=== PATIENT | female | born 1995 | race Caucasian/White ===

== ENCOUNTER 2019-04-07 16:33 | Emergency (ER) | payer OTHER, SELFPAY ==
[2019-04-07 16:40] VITALS: BP 124/74; PULSE 77; RESP 22; TEMP 37.3; O2SAT 99
[2019-04-07 18:26] VITALS: BP 118/63; PULSE 69; RESP 18; O2SAT 99
[2019-04-07 18:28] VITALS: BP 118/63; PULSE 67; RESP 17; O2SAT 99
--- NOTE | 2019-04-07 21:36 | ED.FEMALEGU ---
HPI - Female Genitourinary <HANS Turner - Last Filed: 04/07/19 22:44> General Chief complaint: Urogenital-Female Stated complaint: THINKS CYSTOCELE MAY HAVE RUPTURED Time Seen by Provider: 04/07/19 17:38 Source: patient Mode of arrival: ambulatory Limitations: no limitations History of Present Illness HPI Narrative: This is a 24-year-old female, nonsmoker, presents to ED with moderate amount of unusual thick yellow vaginal discharge without blood. She states is concerned for her cystocele might have ruptured. She has a history of prolapsed uterus and is being evaluated by traffic signal technician specialist in [place] for elective hysterectomy. She also has traffic signal technician provider She reports some fullness in her vaginal area. She reports has been having suprapubic cramping discomfort for last 3 days. She denies fever, chills, vomiting. She reports some nausea and states she feels nauseated when she is anxious. She has urinary frequency which is not on usual for her. She states is not concerned for STIs. . Patient reports had 2 with large size children with a quick delivery which contributes to history of uterine prolapse. Related Data Home Medications Medication Instructions Recorded Confirmed No Known Home Medications 04/07/19 04/07/19 Allergies Allergy/AdvReac Type Severity Reaction Status Date / Time nitrous oxide Allergy Verified 04/07/19 16:44 Review of Systems <HANS Turner - Last Filed: 04/07/19 22:44> Review of Systems ROS Unobtainable: All systems reviewed & are unremarkable except as noted in HPI and below PFSH <HANS Turner - Last Filed: 04/07/19 22:44> Medical History No significant past surgical history (Acute) Cystocele (Chronic) Uterine prolapse (Chronic) Social History Smoking Status: Never smoker Exam <HANS Turner - Last Filed: 04/07/19 22:44> Narrative Exam Narrative: General appearance: well developed, well nourished, in no acute distress. Head: normocephalic, atraumatic, no scalp lesions, non-tender. Eye: pupil equal, round. EOMI. Nose: nares patent. Oral: mucosa moist. Neck/Thyroid: neck supple, full range of motion, no visible masses. Skin: no suspicious rashes, lesions over visible areas. Warm and dry. Heart: S1 and S2 with RRR. no clubbing, no cyanosis, no edema. Lungs: Lung sounds clear bilaterally. Breathing even and unlabored. No stridor. No accessory muscles used. Chest: normal shape and expansion. Abdomen: non-obese, non-distended. Neurologic: alert and oriented. Cognitive exam, [employer]ER and PNS grossly intact on informal exam. Psych: good eye contact, normal affect. PELVIC: Normally developed external female genitalia with no external lesions or eruptions. Vagina and cervix have no lesions, inflammation, scant amouunt of clear vaginal discharge in perineum and non-tenderness. Small size uterine prolapse in approx 3cm diameter noticed with increased thoracic pressure. Initial Vital Signs Initial Vital Signs: Vital Signs Temperature 99.1 F 04/07/19 16:40 Pulse Rate 77 04/07/19 16:40 Respiratory Rate 22 04/07/19 16:40 Blood Pressure 124/74 04/07/19 16:40 Pulse Oximetry 99 04/07/19 16:40 <Charito Terry DO - Last Filed: 04/10/19 07:05> Initial Vital Signs Initial Vital Signs: Vital Signs Temperature 99.1 F 04/07/19 16:40 Pulse Rate 77 04/07/19 16:40 Respiratory Rate 22 04/07/19 16:40 Blood Pressure 124/74 04/07/19 16:40 Pulse Oximetry 99 04/07/19 16:40 Course <HANS Turner - Last Filed: 04/07/19 22:44> Vital Signs - 8 hr 04/07/19 16:40 04/07/19 18:26 04/07/19 18:28 Temperature 99.1 F Pulse Rate 77 69 67 Respiratory Rate 22 18 17 Blood Pressure 124/74 118/63 Blood Pressure [Left Arm] 118/63 Pulse Oximetry 99 99 99 <Charito Terry DO - Last Filed: 04/10/19 07:05> Vital Signs - 8 hr 04/07/19 16:40 04/07/19 18:26 04/07/19 18:28 Temperature 99.1 F Pulse Rate 77 69 67 Respiratory Rate 22 18 17 Blood Pressure 124/74 118/63 Blood Pressure [Left Arm] 118/63 Pulse Oximetry 99 99 99 MDM - Female Genitourinary <Juanito VoAmintaJean MarieHANS harp - Last Filed: 04/07/19 22:44> Differential Diagnosis Likely other (history of uterine prolapse, UTI, vaginal infection) Medical Records Attestation: I reviewed the patient's medical records. Lab Data Attestation: I reviewed the patient's lab results. Point of Care Testing Test Results Negative Urine Dip Bedside Urine Glucose Negative Bedside Urine Bilirubin - Negative Bedside Urine Ketone - Negative Urine Specific [place] 1.015 Bedside Urine Occult Blood - Negative Bedside Urine pH 6.0 Bedside Urine Protein - Negative Bedside Urine Urobilinogen - Negative Bedside Urine Nitrite - Negative Bedside Urine Leukocytes - Negative Esterase MDM Narrative Medical decision making narrative: The patient's physical exam is not consistent with acute surgical abdomen. Her urine test was negative for infection or . The urine prolapse is very small in size and does not appears to be inflamed or infected. External vaginal discharge he was clear and non odorous. The patient reported that she does not have concerns for STIs. I discussed with patient in length that she should contact her traffic signal technician provider to be seen with acute appointment after the ER visit. I discussed return precautions with patient include increasing pain, signs and symptoms for infection, urinary difficulty. Patient agrees with treatment plan and has no further questions at this time. <Charito Terry DO - Last Filed: 04/10/19 07:05> Lab Data Point of Care Testing Test Results Negative Urine Dip Bedside Urine Glucose Negative Bedside Urine Bilirubin - Negative Bedside Urine Ketone - Negative Urine Specific [place] 1.015 Bedside Urine Occult Blood - Negative Bedside Urine pH 6.0 Bedside Urine Protein - Negative Bedside Urine Urobilinogen - Negative Bedside Urine Nitrite - Negative Bedside Urine Leukocytes - Negative Esterase Discharge Plan Departure Patient Disposition: Home Clinical Impression: History of uterine prolapse Discharge Date/Time: 04/07/19 18:29 Interventions: ED Discharge Assessment Last Done: 04/07/19 18:28 Instructions: DI for Uterine Prolapse Activity Restrictions/Additional Instructions: You have been diagnosed with [history of uterine prolapse. Physical exam on perineum shows unremarkable small size urine prolapse. No vaginal cultures were obtained during today's visit. You're urine test shows no infection and test was negative]. What to do: *Take your medications as directed. *Follow up with your primary care provider/traffic signal technician specialist in [facility] in 2-3 days, call for an appointment. Let them know you were seen in the ED and that we asked you to be seen in follow up. *Return to ED if you have any new, worsening, or concerning symptoms, such as [fever/chills, increasing discomfort, increased vaginal discharge, chest pain, breathing difficulty, unable to tolerate fluids, any acute concerns]. Prescriptions: No Action No Known Home Medications RF: 0 <Charito Terry DO - Last Filed: 04/10/19 07:05> Cosign ED Attending Nereida Attestation: I was immediately available in the department for consultation. Documentation has been reviewed. I agree with assessment and plan.
--- NOTE | 2019-04-07 22:44 | ED_ITS ---
HPI - Female Genitourinary <HANS Turner - Last Filed: 04/07/19 22:44> General Chief complaint: Urogenital-Female Stated complaint: THINKS CYSTOCELE MAY HAVE RUPTURED Time Seen by Provider: 04/07/19 17:38 Source: patient Mode of arrival: ambulatory Limitations: no limitations History of Present Illness HPI Narrative: This is a 24-year-old female, nonsmoker, presents to ED with mo derate amount of unusual thick yellow vaginal discharge without blood. She states is concerned for her cystocele might have ruptured. She has a history of prolapsed uterus and is being evaluated by controller instructor specialist in [place] for elective hysterectomy. She also has controller instructor provider She reports some fullness in her vaginal area. She reports has been having suprapubic cramping discomfort for last 3 days. She denies fever, chills, vomiting. She reports some nausea and states she feels nauseated when she is anxious. She has urinary frequency which is not on usual for her. She states is not concerned for STIs. . Patient reports had 2 with large size children with a quick delivery which contributes to history of uterine prolapse. Related Data Home Medications Medication Instructions Recorded Confirmed No Known Home Medications 04/07/19 04/07/19 Allergies Allergy/AdvReac Type Severity Reaction Status Date / Time nitrous oxide Allergy Verified 04/07/19 16:44 Review of Systems <HANS Turner - Last Filed: 04/07/19 22:44> Review of Systems ROS Unobtainable: All systems reviewed & are unremarkable except as noted in HPI and below PFSH <HANS Turner - Last Filed: 04/07/19 22:44> Medical History No significant past surgical history (Acute) Cystocele (Chronic) Uterine prolapse (Chronic) Social History Smoking Status: Never smoker Exam <HANS Turner - Last Filed: 04/07/19 22:44> Narrative Exam Narrative: General appearance: well developed, well nourished, in no acute distress. Head: normocephalic, atraumatic, no scalp lesions, non-tender. Eye: pupil equal, round. EOMI. Nose: nares patent. Oral: mucosa moist. Neck/Thyroid: neck supple, full range of motion, no visible masses. Skin: no suspicious rashes, lesions over visible areas. Warm and dry. Heart: S1 and S2 with RRR. no clubbing, no cyanosis, no edema. Lungs: Lung sounds clear bilaterally. Breathing even and unlabored. No stridor. No accessory muscles used. Chest: normal shape and expansion. Abdomen: non-obese, non-distended. Neurologic: alert and oriented. Cognitive exam, TRAVEL SERVICE CONSULTANT and PNS grossly intact on informal exam. Psych: good eye contact, normal affect. PELVIC: Normally developed external female genitalia with no external lesions or eruptions. Vagina and cervix have no lesions, inflammation, scant amouunt of clear vaginal discharge in perineum and non-tenderness. Small size uterine prolapse in approx 3cm diameter noticed with increased thoracic pressure. Initial Vital Signs Initial Vital Signs: Vital Signs Temperature 99.1 F 04/07/19 16:40 Pulse Rate 77 04/07/19 16:40 Respiratory Rate 22 04/07/19 16:40 Blood Pressure 124/74 04/07/19 16:40 Pulse Oximetry 99 04/07/19 16:40 <Charito Terry DO - Last Filed: 04/10/19 07:05> Initial Vital Signs Initial Vital Signs: Vital Signs Temperature 99.1 F 04/07/19 16:40 Pulse Rate 77 04/07/19 16:40 Respiratory Rate 22 04/07/19 16:40 Blood Pressure 124/74 04/07/19 16:40 Pulse Oximetry 99 04/07/19 16:40 Course <HANS Turner - Last Filed: 04/07/19 22:44> Vital Signs - 8 hr 04/07/19 16:40 04/07/19 18:26 04/07/19 18:28 Temperature 99.1 F Pulse Rate 77 69 67 Respiratory Rate 22 18 17 Blood Pressure 124/74 118/63 Blood Pressure [Left Arm] 118/63 Pulse Oximetry 99 99 99 <Charito Terry DO - Last Filed: 04/10/19 07:05> Vital Signs - 8 hr 04/07/19 16:40 04/07/19 18:26 04/07/19 18:28 Temperature 99.1 F Pulse Rate 77 69 67 Respiratory Rate 22 18 17 Blood Pressure 124/74 118/63 Blood Pressure [Left Arm] 118/63 Pulse Oximetry 99 99 99 MDM - Female Genitourinary <Juanito VoAmintaJean MarieHANS harp - Last Filed: 04/07/19 22:44> Differential Diagnosis Likely other (history of uterine prolapse, UTI, vaginal infection) Medical Records Attestation: I reviewed the patient's medical records. Lab Data Attestation: I reviewed the patient's lab results. Point of Care Testing Test Results Negative Urine Dip Bedside Urine Glucose Negative Bedside Urine Bilirubin - Negative Bedside Urine Ketone - Negative Urine Specific [place] 1.015 Bedside Urine Occult Blood - Negative Bedside Urine pH 6.0 Bedside Urine Protein - Negative Bedside Urine Urobilinogen - Negative Bedside Urine Nitrite - Negative Bedside Urine Leukocytes - Negative Esterase MDM Narrative Medical decision making narrative: The patient's physical exam is not consistent with acute surgical abdomen. Her urine test was negative for infection or . The urine prolapse is very small in size and does not appears to be inflamed or infected. External vaginal discharge he was clear and non odorous. The patient reported that she does not have concerns for STIs. I discussed with patient in length that she should contact her controller instructor provider to be seen with acute appointment after the ER visit. I discussed return precautions with patient include increasing pain, signs and symptoms for infection, urinary difficulty. Patient agrees with treatment plan and has no further questions at this time. <Charito Terry DO - Last Filed: 04/10/19 07:05> Lab Data Point of Care Testing Test Results Negative Urine Dip Bedside Urine Glucose Negative Bedside Urine Bilirubin - Negative Bedside Urine Ketone - Negative Urine Specific [place] 1.015 Bedside Urine Occult Blood - Negative Bedside Urine pH 6.0 Bedside Urine Protein - Negative Bedside Urine Urobilinogen - Negative Bedside Urine Nitrite - Negative Bedside Urine Leukocytes - Negative Esterase Discharge Plan Departure Patient Disposition: Home Clinical Impression: History of uterine prolapse Discharge Date/Time: 04/07/19 18:29 Interventions: ED Discharge Assessment Last Done: 04/07/19 18:28 Instructions: DI for Uterine Prolapse Activity Restrictions/Additional Instructions: You have been diagnosed with [history of uterine prolapse. Physical exam on perineum shows unremarkable small size urine prolapse. No vaginal cultures were obtained during today's visit. You're urine test shows no infection and test was negative]. What to do: *Take your medications as directed. *Follow up with your primary care provider/controller instructor specialist in [facility] in 2-3 days, call for an appointment. Let them know you were seen in the ED and that we asked you to be seen in follow up. *Return to ED if you have any new, worsening, or concerning symptoms, such as [fever/chills, increasing discomfort, increased vaginal discharge, chest pain, breathing difficulty, unable to tolerate fluids, any acute concerns]. Prescriptions: No Action No Known Home Medications RF: 0 <Charito Terry DO - Last Filed: 04/10/19 07:05> Cosign ED Attending Monchoature Attestation: I was immediately available in the department for consultation. Documentation has been reviewed. I agree with assessment and plan.
== END 2019-04-07 18:29 | disposition home or self-care (01) ==
PROVIDERS: Emergency Provider Nurse Practitioner Family
DX: N89.8 Other specified noninflammatory disorders of vagina (principal); Z87.42 Personal history of other diseases of the female genital tract
CPT/HCPCS: 81003; 81025; 99283

== ENCOUNTER 2020-06-16 14:48 | Emergency (ER) | payer OTHER, MEDICAID, SELFPAY ==
[2020-06-16 14:50] VITALS: BP 170/71; PULSE 106; RESP 15; TEMP 37; O2SAT 100; BMI 29.6
--- NOTE | 2020-06-16 15:46 | ED.CHESTPAIN ---
HPI - Chest Pain General Chief Complaint: Chest Pain Stated Complaint: Chest pain couple of weeks Time Seen by Provider: 06/16/20 15:35 Source: patient Mode of arrival: Ambulatory Limitations: no limitations History of Present Illness HPI narrative: Patient is a 25-year-old female who presents with a variety of complaints. SHE STATES SHE HAS HAD LEFT-SIDED CHEST PAIN ONGOING FOR A NUMBER OF WEEKS IT HURTS WHENEVER SHE TAKES A BREATH MOVES OR COUGHS. SHE HAS HAD SOME FROTHY SPUTUM WHICH IS USUALLY CLEAR BUT OCCASIONALLY PINK. SHE DENIES any shortness of breath. No fever or chills. She is a frequently nauseous for number of weeks but denies any . She denies any recent travel. Related Data Home Medications Medication Instructions Recorded Confirmed No Known Home Medications 04/07/19 06/16/20 Allergies Allergy/AdvReac Type Severity Reaction Status Date / Time nitrous oxide Allergy Verified 06/16/20 15:14 Review of Systems Review of Systems Narrative: GENERAL: Denies chills, fatigue, malaise, fever, sweats, travel HEENT: Denies sinus pain, ear pain, sore throat, difficulty swallowing, neck pain RESPIRATORY: See HPI CARDIOVASCULAR: See HPI GASTROINTESTINAL: Denies nausea, vomiting, abdominal pain, diarrhea, constipation, melena. : Denies dysuria, frequency, incontinence, hematuria, urinary retention, flank pain. MUSCULOSKELETAL: Denies weakness, joint pain, or bony pain SKIN: No rash, no erythema, no pruritus NEUROLOGIC: Denies weakness, dizziness, headache, numbness, change in speech, confusion PSYCHIATRIC: No concerning psychosocial issues. 12 point review of systems is negative except for those stated above and HPI Patient History Medical History Cystocele (Chronic) Uterine prolapse (Chronic) Surgical History No significant past surgical history (Acute) Social History Smoking Status: Never smoker Smoking Status: Never smoker alcohol intake frequency: holidays/special occasions only Substance Use Type: does not use Exam Initial Vital Signs Initial Vital Signs: Vital Signs Temperature 98.6 F 06/16/20 14:50 Pulse Rate 106 H 06/16/20 14:50 Respiratory Rate 15 06/16/20 14:50 Blood Pressure 170/71 H 06/16/20 14:50 Pulse Oximetry 100 06/16/20 14:50 GENERAL: Well-appearing, well-nourished and in no acute distress. HEENT: Head atraumatic,EOMI, pupils reactive, face symmetric, moist mucous membranes CARDIOVASCULAR: Regular rate and rhythm without murmurs, rubs or gallops. Pain is reproducible with palpation but is quite diffuse over the entire left side RESPIRATORY: Breath sounds equal bilaterally, no wheezes rales or rhonchi. ABDOMEN: Soft, nontender. Normoactive bowel sounds all 4 quadrants. No guarding or rebound. EXTREMITIES: Normal range of motion, no clubbing or edema. Neurovascularly intact NEUROLOGICAL: Alert and oriented x4.Normal gait and speech. SKIN: Warm, dry, no laceration, no petechiae, no rashes or lesions. Scores HEART Score Heart Score history: Slightly Suspicious Heart Score EKG: Normal Heart Score Age: < 45 years old Heart Score risk factors: No known risk factors Heart Score troponin: < or = to normal limit Heart Score Total: 0 PERC Score Age greater than or equal to 50 years: No Heart rate greater than or equal to 100 bpm: Yes Room Air O2 Sat less than 95%: No Unilateral leg swelling: No Recent trauma or surgery: No Hemoptysis: No Prior PE or DVT: No Hormone Use: No Total PERC Score: 1 Course Orders Ordered: ED Orders 06/16/20 15:31 Complete Blood Count AUTO DIFF Stat Comprehensive Metabolic Panel Stat D Dimer Stat Lipase Stat NT-proBNP (BNP-Adult 18+) Stat Troponin & CK Cardiac Panel Stat 06/16/20 15:54 XR chest 2V Stat Discontinued Medications Aspirin (Aspirin Chew) 324 mg PO NOW ONE Stop: 06/16/20 15:55 Last Admin: 06/16/20 16:00 Dose: 324 mg Documented by: SOFIE Ketorolac Tromethamine (Toradol) 30 mg IV NOW ONE Stop: 06/16/20 16:23 Last Admin: 06/16/20 16:42 Dose: Not Given Documented by: SOFIE Vital Signs Vital signs: Vital Signs - 8 hr 06/16/20 14:50 06/16/20 16:57 Temperature 98.6 F Pulse Rate 106 H 73 Respiratory Rate 15 16 Blood Pressure 170/71 H 130/84 Pulse Oximetry 100 97 MDM - Chest Pain Lab Data Attestation: I reviewed the patient's lab results. Result diagrams: 06/16/20 15:31 06/16/20 15:31 Labs: Lab Results 06/16/20 06/16/20 06/16/20 Range/Units 15:31 15:31 15:31 WBC 8.4 (4.5-11.0) X10^3/uL RBC 4.74 (4.0-5.2) X10^6/uL Hgb 14.2 (12.0-16.0) g/dL Hct 42.3 (36-46) % MCV 89.4 (80-100) fL MCH 30.1 (26-34) PG MCHC 33.7 (30-36) % RDW 13.9 (11.6-14.8) % Plt Count 205 (150-400) X10^3/uL Neut % (Auto) 71.3 (50-75) % Lymph % (Auto) 20.9 L (25-40) % [place] % (Auto) 4.8 (3-14) % Eos % (Auto) 2.6 (2-4) % Baso % (Auto) 0.4 (0-2) % Neut # (Auto) 6000 (0881-8588) /uL Lymph # (Auto) 1800 (7357-5535) /uL [place] # (Auto) 400 (0-900) /uL Eos # (Auto) 200 (0-450) /uL Baso # (Auto) 0 (0-100) /uL D-Dimer < 200 (<230) ng/mL Sodium 138 (137-145) mmol/L Potassium 3.4 (3.4-5.1) mmol/L Chloride 102 (98-107) mmol/L Carbon Dioxide 26 (22-32) mmol/L BUN 7 (7-17) mg/dL Creatinine 0.60 (0.52-1.04) mg/dL Estimated GFR > 60.0 (>60) mL/min BUN/Creatinine Ratio 11.7 (6-22) Glucose 94 (70-100) mg/dL Calcium 9.6 (8.4-10.2) mg/dL Total Bilirubin 0.6 (0.2-1.3) mg/dL AST 29 (14-36) IU/L ALT 16 (<35) IU/L Alkaline Phosphatase 53 (38-126) U/L Total Creatine Kinase 258 H (30-135) U/L CK-MB (CK-2) 1.08 (<2.37) ng/mL CK-MB (CK-2) Rel Index 0.4 L (1.5-5.0) % Troponin I < 0.012 (0.01-0.034) ng/mL NT-Pro-B Natriuret Pep 34 (<125) pg/mL Total Protein 8.3 H (6.3-8.2) g/dL Albumin 4.9 (3.5-5.0) g/dL Globulin 3.4 (1.7-4.1) g/dL Albumin/Globulin Ratio 1.4 (1.0-2.8) Lipase 28 (23-300) U/L Point of Care Testing Test Results Negative Urine Dip Bedside Urine Glucose Negative Bedside Urine Bilirubin - Negative Bedside Urine Ketone +/- 5 Urine Specific [place] 1.015 Bedside Urine Occult Blood - Negative Bedside Urine pH 6.0 Bedside Urine Protein - Negative Bedside Urine Urobilinogen - Negative Bedside Urine Nitrite - Negative Bedside Urine Leukocytes - Negative Esterase Imaging Data Chest x-ray: Radiologist's Impression: PROCEDURE: XR CHEST 2V INDICATIONS: chest pain TECHNIQUE: 2 views of the chest were acquired. COMPARISON: None. FINDINGS: Surgical changes and devices: None. Lungs and pleura: Lungs are clear. No pleural effusions or pneumothorax. Mediastinum: Mediastinal contours are normal. Heart size is normal. Bones and chest wall: No suspicious bony abnormalities. Soft tissues appear unremarkable. IMPRESSION: No acute cardiopulmonary abnormality. Dictated by: Austyn Persaud M.D. on 06/16/2020 at 16:21 Approved by: Austyn Persaud M.D. on 06/16/2020 at 16:22 ECG Data Attestation: I personally reviewed and interpreted this ECG as follows: Prior ECG tracings: not available for review Interpretation: Normal sinus rhythm rate 79 p.r. interval 140 QRS 107 QTC 429 small S wave noted in lead 1 she does have T-wave inversion noted in lead 3, no ST change MDM Narrative Medical decision making narrative: Patient is noted to be tachycardic, D-dimer is ordered. She has a wide variety of symptoms none of which seem to be really acute. Her left-sided chest pain is worse with movement which seems to be musculoskeletal although it is not pinpoint. Blood work chest x-ray are reassuring a dimer is negative and PERC score is low. At this time I recommend ibuprofen and follow up outpatient. Discharge Plan Departure Patient Disposition: Home Clinical Impression: Atypical chest pain Discharge Date/Time: 06/16/20 16:58 Instructions: DI for Atypical Chest Pain Activity Restrictions/Additional Instructions: *You have been diagnosed with atypical chest *What to do: At this time her pain is likely related to musculoskeletal. This can take a few weeks to heal. There is no pneumonia and blood work is reassuring *Continue to take medications as directed Ibuprofen 800 mg every 6-8 hours if needed for pain *Follow up with your primary care provider in 2-3 days *Return to ER if you should have increased pain, shortness of breaths or any new, worsening or concerning symptoms Prescriptions: No Action No Known Home Medications RF: 0 Referrals: [facility] [Outside] Rossy Cullen PA-C [Primary Care Provider] -
--- NOTE | 2020-06-16 15:54 | DI.RAD.S_ITS ---
PROCEDURE: XR CHEST 2V INDICATIONS: chest pain TECHNIQUE: 2 views of the chest were acquired. COMPARISON: None. FINDINGS: Surgical changes and devices: None. Lungs and pleura: Lungs are clear. No pleural effusions or pneumothorax. Mediastinum: Mediastinal contours are normal. Heart size is normal. Bones and chest wall: No suspicious bony abnormalities. Soft tissues appear unremarkable. IMPRESSION: No acute cardiopulmonary abnormality. Dictated by: Austyn Persaud M.D. on 06/16/2020 at 16:21 Approved by: Austyn Persaud M.D. on 06/16/2020 at 16:22
[2020-06-16] MEDS: ASPIRIN 81 MG CHEW TAB 324 MG PO (16:00)
[2020-06-16 16:02] LABS: Add Manual Diff / Slide Review NO; Basophils Absolute Auto 0 /uL (0-100); Basophils Percent Auto 0.4 % (0-2); Eosinophils Absolute Auto 200 /uL (0-450); Eosinophils Percent Auto 2.6 % (2-4); Hematocrit 42.3 % (36-46); Hemoglobin 14.2 g/dL (12.0-16.0); Lymphocytes Absolute Auto 1800 /uL (1100-4500); Lymphocytes Percent Auto 20.9 % (25-40); Mean Corpuscular HGB Conc 33.7 % (30-36); Mean Corpuscular Hemoglobin 30.1 PG (26-34); Mean Corpuscular Volume 89.4 fL (80-100); Monocytes Absolute Auto 400 /uL (0-900); Monocytes Percent Auto 4.8 % (3-14); Neutrophils Absolute Auto 6000 /uL (1500-7000); Neutrophils Percent Auto 71.3 % (50-75); Platelet Count 205 X10^3/uL (150-400); Red Blood Cell Count 4.74 X10^6/uL (4.0-5.2); Red Cell Distribution Width 13.9 % (11.6-14.8); White Blood Cell Count 8.4 X10^3/uL (4.5-11.0)
[2020-06-16 16:07] LABS: Alanine Aminotransferase 16 IU/L (<35); Albumin 4.9 g/dL (3.5-5.0); Albumin Globulin Ratio 1.4 (1.0-2.8); Alkaline Phosphatase 53 U/L (38-126); Aspartate Aminotransferase 29 IU/L (14-36); BUN Creatinine Ratio 11.7 (6-22); Bilirubin Total 0.6 mg/dL (0.2-1.3); Blood Urea Nitrogen 7 mg/dL (7-17); Calcium 9.6 mg/dL (8.4-10.2); Carbon Dioxide 26 mmol/L (22-32); Chloride 102 mmol/L (98-107); Creatine Kinase 258 U/L (30-135); Estimated Glomerular Filt Rate > 60.0 mL/min (>60); Globulin 3.4 g/dL (1.7-4.1); Glucose 94 mg/dL (70-100); HEMOLYSIS < 15 (0-50); Lipase 28 U/L (23-300); Potassium 3.4 mmol/L (3.4-5.1); Sodium 138 mmol/L (137-145); Total Protein 8.3 g/dL (6.3-8.2)
[2020-06-16 16:18] LABS: D Dimer < 200 ng/mL (<230)
[2020-06-16 16:19] LABS: NT-proBNP (BNP-Adult 18+) 34 pg/mL (<125); Troponin I < 0.012 ng/mL (0.01-0.034)
[2020-06-16 16:22] LABS: CKMB % Relative Index 0.4 % (1.5-5.0); Creatine Kinase MB 1.08 ng/mL (<2.37)
[2020-06-16 16:57] VITALS: BP 130/84; PULSE 73; RESP 16; O2SAT 97
== END 2020-06-16 16:58 | disposition home or self-care (01) ==
PROVIDERS: Emergency Provider Emergency Medicine; PCP Physician Assistant
DX: R07.89 Other chest pain (principal); R11.0 Nausea
CPT/HCPCS: 36415; 71046; 80053; 81003; 81025; 82550; 82553; 83690; 83880; 84484; 85025; 85379; 93005; 93010; 99284

== ENCOUNTER 2021-03-15 18:10 | Emergency (ER) | payer OTHER, MEDICAID, SELFPAY ==
[2021-03-15] VITALS (16 sets, daily range): BP systolic 104–133; BP diastolic 56–70; PULSE 60–90; RESP 12–38; TEMP 37.6; O2SAT 97–100; BMI 28.2
[2021-03-15] MEDS: ONDANSETRON 4 MG/2 ML INJ IV ×2 (18:23→21:37)
[2021-03-15 18:37] LABS: Add Manual Diff / Slide Review NO; Basophils Absolute Auto 200 /uL (0-100); Basophils Percent Auto 1.2 % (0-2); Eosinophils Absolute Auto 100 /uL (0-450); Eosinophils Percent Auto 1.1 % (2-4); Hematocrit 43.8 % (36-46); Hemoglobin 14.7 g/dL (12.0-16.0); Lymphocytes Absolute Auto 3800 /uL (1100-4500); Lymphocytes Percent Auto 26.5 % (25-40); Mean Corpuscular HGB Conc 33.5 % (30-36); Mean Corpuscular Hemoglobin 30.1 PG (26-34); Mean Corpuscular Volume 89.7 fL (80-100); Monocytes Absolute Auto 600 /uL (0-900); Monocytes Percent Auto 4.4 % (3-14); Neutrophils Absolute Auto 9500 /uL (1500-7000); Neutrophils Percent Auto 66.8 % (50-75); Platelet Count 275 X10^3/uL (150-400); Red Blood Cell Count 4.88 X10^6/uL (4.0-5.2); Red Cell Distribution Width 13.6 % (11.6-14.8); White Blood Cell Count 14.3 X10^3/uL (4.5-11.0)
[2021-03-15 18:48] LABS: Ethanol (ETOH) < 10 mg/dL
[2021-03-15 18:50] LABS: Alanine Aminotransferase 20 IU/L (<35); Albumin 4.6 g/dL (3.5-5.0); Albumin Globulin Ratio 1.4 (1.0-2.8); Alkaline Phosphatase 49 U/L (38-126); Aspartate Aminotransferase 31 IU/L (14-36); BUN Creatinine Ratio 16.4 (6-22); Bilirubin Total 0.5 mg/dL (0.2-1.3); Blood Urea Nitrogen 10 mg/dL (7-17); Calcium 9.7 mg/dL (8.4-10.2); Carbon Dioxide 25 mmol/L (22-32); Chloride 102 mmol/L (98-107); Creatine Kinase 127 U/L (30-135); Estimated Glomerular Filt Rate > 60.0 mL/min (>60); Globulin 3.2 g/dL (1.7-4.1); Glucose 110 mg/dL (70-100); HEMOLYSIS < 15 (0-50); Lipase 46 U/L (23-300); Potassium 3.1 mmol/L (3.4-5.1); Sodium 137 mmol/L (137-145); Total Protein 7.8 g/dL (6.3-8.2)
[2021-03-15 18:52] LABS: COVID19 -Nasal RAPID Negative (Negative)
[2021-03-15 19:01] LABS: Troponin I < 0.012 ng/mL (0.01-0.034)
[2021-03-15 19:04] LABS: CKMB % Relative Index 0.4 % (1.5-5.0); Creatine Kinase MB 0.56 ng/mL (<2.37)
[2021-03-15 19:19] LABS: Ictotest Urine Negative (Negative)
[2021-03-15 19:20] LABS: UR Morphine/Opiate cutoff 300 Negative (Negative); Ur Creatinine Normal (Normal); Ur Specific Gravity Normal (Normal); Urine Amphetamines Negative (Negative); Urine Barbiturates Negative (Negative); Urine Benzodiazepines Negative (Negative); Urine Cocaine Negative (Negative); Urine MDMA Negative (Negative); Urine Methadone Negative (Negative); Urine Methamphetamines Negative (Negative); Urine Oxycodone Negative (Negative); Urine Phencyclidine Negative (Negative); Urine Tetrahydrocannabinol Negative (Negative); Urine Tricyclic Antidepressant Negative (Negative); Urine pH Normal (Normal)
[2021-03-15 19:41] LABS: Bacteria Urine Moderate (10-30); Mucus Urine 1+ (Negative); RBC Urine 0-1/HPF (0-5/HPF); Squamous Epithelial Cell Urine 10-30 /HPF (0-5/HPF); Transitional Epi Cells Urine 1-5/HPF (0-5/HPF); WBC Urine 5-10/HPF (0-5/HPF)
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
[2021-03-15] MEDS: ONDANSETRON 4 MG ODT PREPACK 1 BOTTLE MISC (21:37)
[2021-03-15] MEDS: POTASSIUM CHLORIDE 20 MEQ TAB 40 MEQ PO (21:37)
[2021-03-15] MEDS: METOCLOPRAMIDE 10 MG/2 ML INJ IV (22:05)
== END 2021-03-15 22:42 | disposition home or self-care (01) ==
PROVIDERS: Emergency Provider Emergency Medicine; PCP Registered Nurse Diabetes Educator
DX: B34.9 Viral infection, unspecified (principal); R55 Syncope and collapse; R11.2 Nausea with vomiting, unspecified; Z20.822 Contact with and (suspected) exposure to COVID-19
CPT/HCPCS: 36415; 80053; 80305; 80320; 81003; 81015; 81025; 82550; 82553; 82962; 83690; 83735; 84484; 85025; 87086; 87635; 93005; 96374; 96375; 99284; C9803; J2405; J2765

== ENCOUNTER → 2024-05-03 15:01 | Outpatient (CLI) | payer OTHER, SELFPAY ==
[2024-05-03 15:46] LABS: Influenza A - CEPHEID Flu A NEGATIVE (NEGATIVE); Influenza B - CEPHEID Flu B NEGATIVE (NEGATIVE); Respiratory Syncytial Virus Negative (Negative)
[2024-05-03 15:58] LABS: COVID-19 CEPHEID 4-PLEX PCR POSITIVE (Negative)
== END ==
PROVIDERS: PCP Registered Nurse Diabetes Educator; Visit Provider Nurse Practitioner Family
DX: R05.1 Acute cough (principal)
CPT/HCPCS: 0241U